=== PATIENT | male | born 1965 | race Caucasian/White ===

== ENCOUNTER 2018-11-16 12:46 | Outpatient (CLI) | payer OTHER | END 2018-11-16 23:59 | disposition home or self-care (01) | LOC: LAB.WCP 12:46 | PROVIDERS: ATTEND Physician Assistant Medical | DX: E29.1 Testicular hypofunction (principal) | CPT/HCPCS: 36415; 81599; 84402; 84403 ==

== ENCOUNTER 2019-03-09 10:40 | Outpatient (CLI) | payer OTHER | END 2019-03-09 10:41 | disposition home or self-care (01) | LOC: LAB.WCP 10:40 | PROVIDERS: ATTEND Physician Assistant Medical | DX: E29.1 Testicular hypofunction (principal) | CPT/HCPCS: 81599; 84403 ==

== ENCOUNTER 2019-03-29 09:44 | Outpatient (CLI) | payer OTHER | END 2019-03-29 09:45 | disposition home or self-care (01) | LOC: LAB.WCP 09:44 | PROVIDERS: ATTEND Physician Assistant Medical | DX: E29.1 Testicular hypofunction (principal) | CPT/HCPCS: 81599; 84402; 84403 ==

== ENCOUNTER 2019-09-24 10:15 | Outpatient (CLI) | payer OTHER | END 2019-09-24 23:59 | disposition home or self-care (01) | LOC: LAB.WCP 10:15 | PROVIDERS: ATTEND Physician Assistant Medical | DX: E29.1 Testicular hypofunction (principal) | CPT/HCPCS: 36415; 81599 ==

== ENCOUNTER 2019-12-09 08:00 | Outpatient (CLI) | payer OTHER ==
[2019-12-09 12:00] LABS: BASOPHILS % (AUTO) 0.6 %; EOSINOPHILS # (AUTO) 0.1 10^3/uL (0.0-0.7); EOSINOPHILS % (AUTO) 1.9 %; HGB - HEMOGLOBIN 19.1 g/dL (14.0-18.0); LYMPHOCYTES # (AUTO) 1.3 10^3/uL (1.5-3.5); LYMPHOCYTES % (AUTO) 24.4 %; MEAN CORPUSCULAR HEMOGLOBIN 31.1 pg (27.0-31.0); MEAN CORPUSCULAR HGB CONC 32.9 g/dL (32.0-36.0); MEAN CORPUSCULAR VOLUME 94.3 fL (80.0-94.0); MEAN PLATELET VOLUME 12.4 fL (7.4-11.4); MONOCYTES # (AUTO) 0.4 10^3/uL (0.0-1.0); MONOCYTES % (AUTO) 7.4 %; NEUTROPHILS # (AUTO) 3.4 10^3/uL (1.5-6.6); NEUTROPHILS % (AUTO) 65.3 %; PLT - PLATELET COUNT 166 10^3/uL (130-450); RED BLOOD COUNT 6.15 10^6/uL (4.70-6.10); RED CELL DISTRIBUTION WIDTH 13.6 % (12.0-15.0); WHITE BLOOD COUNT 5.2 x10^3/uL (4.8-10.8)
[2019-12-09 12:41] LABS: ALBUMIN 4.2 g/dL (3.2-5.5); ALBUMIN/GLOBULIN RATIO 1.3 (1.0-2.2); ALKALINE PHOSPHATASE 72 IU/L (42-121); ALT ALANINE AMINOTRANSFERASE 55 IU/L (10-60); AST ASPARTATE AMINOTRANSFERASE 35 IU/L (10-42); BILIRUBIN,TOTAL 0.4 mg/dL (0.2-1.0); BUN - BLOOD UREA NITROGEN 19 mg/dL (6-20); CALCIUM 8.7 mg/dL (8.5-10.3); CARBON DIOXIDE - CO2 30 mmol/L (21-32); CHLORIDE 104 mmol/L (101-111); CHOL/HDL RATIO 5.9 (<5.0); CHOLESTEROL 219 mg/dL; CREATININE 1.3 mg/dL (0.6-1.2); GFR - MDRD 58 (>89); GLUCOSE 98 mg/dL (70-100); HDL CHOLESTEROL 37 mg/dL; LDL CHOLESTEROL,CALCULATED 162 mg/dL; LDL/HDL RATIO 4.4 (<3.6); SODIUM 137 mmol/L (135-145); TOTAL PROTEIN 7.4 g/dL (6.7-8.2); VLDL CHOLESTEROL 20 mg/dL
== END 2019-12-09 23:59 | disposition home or self-care (01) ==
LOC: LAB.WCP 08:00
PROVIDERS: ATTEND Physician Assistant Medical
DX: E29.1 Testicular hypofunction (principal); I10 Essential (primary) hypertension; Z12.5 Encounter for screening for malignant neoplasm of prostate
CPT/HCPCS: 36415; 80053; 80061; 83721; 84153; 84443; 85025

== ENCOUNTER 2020-02-03 11:46 | Outpatient (CLI) | payer OTHER ==
--- NOTE | 2020-02-03 20:05 | XRAY Report ---
Reason: LEFT OLECRANON BURSITIS Procedure Date: 02/03/2020 Accession Number: [id number] / [id number] Procedure: WCP - Elbow 2 View LT CPT Code: Final Report FULL RESULT: EXAM: LEFT ELBOW RADIOGRAPHY EXAM DATE: 02/03/2020 11:46 AM. CLINICAL HISTORY: LEFT OLECRANON BURSITIS. Swelling for 10 days since being hit with a tree branch. COMPARISON: None. TECHNIQUE: 2 views. FINDINGS: Bones: Normal. No fractures or bone lesions. Joints: Moderate narrowing at the radiocapitellar joint. Mild radial head and distal humeral osteophyte formation. No subluxation. No evidence of joint effusion. Soft Tissues: Mild soft tissue swelling over the olecranon. IMPRESSION: 1. Mild soft tissue swelling over the olecranon. 2. No fracture or malalignment is identified. 3. 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 [facility]
== END 2020-02-03 23:59 | disposition home or self-care (01) ==
LOC: DI.WCP 11:46
PROVIDERS: ATTEND Family Medicine
DX: M19.022 Primary osteoarthritis, left elbow (principal); R22.32 Localized swelling, mass and lump, left upper limb

== ENCOUNTER 2020-07-03 08:00 | Outpatient (CLI) | payer OTHER | END 2020-07-03 23:59 | disposition home or self-care (01) | LOC: LAB.WCP 08:00 | PROVIDERS: ATTEND Physician Assistant Medical | DX: E29.1 Testicular hypofunction (principal) | CPT/HCPCS: 36415; 81599; 84402; 84403 ==

== ENCOUNTER 2020-12-11 07:00 | Outpatient (CLI) | payer OTHER ==
[2020-12-11 18:25] LABS: BASOPHILS % (AUTO) 0.6 %; EOSINOPHILS # (AUTO) 0.1 10^3/uL (0.0-0.7); EOSINOPHILS % (AUTO) 1.5 %; HGB - HEMOGLOBIN 19.2 g/dL (14.0-18.0); LYMPHOCYTES # (AUTO) 1.4 10^3/uL (1.5-3.5); LYMPHOCYTES % (AUTO) 27.3 %; MEAN CORPUSCULAR VOLUME 93.9 fL (80.0-94.0); MEAN PLATELET VOLUME 12.4 fL (7.4-11.4); MONOCYTES # (AUTO) 0.3 10^3/uL (0.0-1.0); MONOCYTES % (AUTO) 6.3 %; NEUTROPHILS # (AUTO) 3.4 10^3/uL (1.5-6.6); NEUTROPHILS % (AUTO) 64.1 %; PLT - PLATELET COUNT 175 10^3/uL (130-450); RED BLOOD COUNT 6.39 10^6/uL (4.70-6.10); RED CELL DISTRIBUTION WIDTH 14.4 % (12.0-15.0); WHITE BLOOD COUNT 5.3 x10^3/uL (4.8-10.8)
[2020-12-11 18:50] LABS: ALBUMIN 4.6 g/dL (3.2-5.5); ALBUMIN/GLOBULIN RATIO 1.5 (1.0-2.2); ALKALINE PHOSPHATASE 72 IU/L (42-121); ALT ALANINE AMINOTRANSFERASE 46 IU/L (10-60); AST ASPARTATE AMINOTRANSFERASE 31 IU/L (10-42); BILIRUBIN,TOTAL 0.7 mg/dL (0.2-1.0); BUN - BLOOD UREA NITROGEN 19 mg/dL (6-20); CALCIUM 8.9 mg/dL (8.5-10.3); CARBON DIOXIDE - CO2 28 mmol/L (21-32); CHLORIDE 102 mmol/L (101-111); CHOL/HDL RATIO 5.9 (<5.0); CHOLESTEROL 241 mg/dL; CREATININE 1.1 mg/dL (0.6-1.2); GFR - MDRD 69 (>89); GLUCOSE 94 mg/dL (70-100); HDL CHOLESTEROL 41 mg/dL; LDL CHOLESTEROL,CALCULATED 177 mg/dL; LDL/HDL RATIO 4.3 (<3.6); POTASSIUM 4.5 mmol/L (3.5-5.0); SODIUM 136 mmol/L (135-145); TOTAL PROTEIN 7.7 g/dL (6.7-8.2); TRIGLYCERIDES 116 mg/dL; VLDL CHOLESTEROL 23 mg/dL
[2020-12-11 18:55] LABS: THYROID STIMULATING HORMONE 2.47 uIU/mL (0.34-5.60)
== END 2020-12-11 23:59 | disposition home or self-care (01) ==
LOC: LAB.WCP 07:00
PROVIDERS: ATTEND Physician Assistant Medical
DX: Z00.00 Encounter for general adult medical examination without abnormal findings (principal); E78.5 Hyperlipidemia, unspecified; Z12.5 Encounter for screening for malignant neoplasm of prostate; E29.1 Testicular hypofunction
CPT/HCPCS: 36415; 80053; 80061; 81599; 82040; 83721; 84153; 84270; 84402; 84403; 84443; 85025

== ENCOUNTER 2021-01-09 08:43 | Outpatient (CLI) | payer OTHER ==
--- NOTE | 2021-01-09 09:36 | CT Report ---
PROCEDURE: Low Dose Lung Cancer Screen INDICATIONS: HX OF SMOKING TECHNIQUE: Noncontrast low-dose 5 mm thick sections acquired from the pulmonary apices to the posterior costophr enic angles. 7 mm thick coronal and sagittal MIP reformats were then acquired. For radiation dose r eduction, the following was used: automated exposure control, adjustment of mA and/or kV according t o patient size. COMPARISON: None. FINDINGS: Image quality: Excellent. Lungs and pleura: No pulmonary nodules. No focal pulmonary infiltrates. No pleural fluid. Mediastinum: Heart size is normal. No pericardial effusion. No mediastinal adenopathy by size crit eria. Thoracic aorta and central pulmonary arteries are normal in size. Esophagus is normal in darrell andrea. No hiatal hernia. Bones and chest wall: No suspicious bony lesions. No vertebral body compression fractures. No axil teddy or supraclavicular adenopathy by size criteria. Thyroid is not well visualized on this low-dose technique. Abdomen: Visualized upper abdomen solid organs and bowel loops appear normal in the absence of contr ast. IMPRESSION: 1. LungRads category 1: Negative. No nodules and/or definitely benign nodules. 2. Annual low-dose noncontrast CT of the chest is recommended for lung cancer screening. Reviewed by: Anson Tai MD on 01/09/2021 9:34 AM PDT Approved by: Anson Tai MD on 01/09/2021 9:34 AM PDT Station ID: [id number]
== END 2021-01-09 08:44 | disposition home or self-care (01) ==
LOC: DI 08:43
PROVIDERS: ATTEND Physician Assistant Medical
DX: Z12.2 Encounter for screening for malignant neoplasm of respiratory organs (principal); F17.210 Nicotine dependence, cigarettes, uncomplicated

== ENCOUNTER 2021-03-01 08:00 | Outpatient (CLI) | payer OTHER ==
[2021-03-01 12:34] LABS: CHOLESTEROL 252 mg/dL; HDL CHOLESTEROL 36 mg/dL; LDL CHOLESTEROL,CALCULATED 200 mg/dL; LDL/HDL RATIO 5.6 (<3.6); TRIGLYCERIDES 78 mg/dL; VLDL CHOLESTEROL 16 mg/dL
== END 2021-03-01 23:59 | disposition home or self-care (01) ==
LOC: LAB.WCP 08:00
PROVIDERS: ATTEND Physician Assistant Medical
DX: E78.5 Hyperlipidemia, unspecified (principal); E29.1 Testicular hypofunction
CPT/HCPCS: 36415; 80061; 83721; 84403

== ENCOUNTER 2021-04-26 10:39 | Outpatient (CLI) | payer OTHER ==
[2021-04-26 11:30] VITALS: BP 150/90
--- NOTE | 2021-04-26 11:30 | SLEEP CARE CONSULTATION ---
Information from patient questionnaire entered by Tina Sanchez. I have reviewed and concur with the information entered by Tina Sanchez. This document represents the service I personally performed and the decisions made by me, Martha Bryan ARNP. History of Present Illness Service Date and Time: 04/26/2021 1039 Reason for Visit: New patient Chief Complaint: reports: Unrefreshed sleep, Snoring, Observed pauses in breathing, Frequent awakenings at night Date of Onset: 6-7 years Usual bedtime: 10:30pm Time it takes to fall asleep: 10 minutes Snores at night: Yes Observed to quit breathing while asleep: No Sleeps alone due to snoring: Yes Number of times waking at night: 0-2 Reasons for waking at night: reports: Other (unknown reasons). denies: Choking, Snoring, Gasping for air Toss, Turn, or Twitch while sleeping: Yes Recalls having dreams: Yes (sometimes) Usually gets out of bed at: 4-5 am Feels refreshed in the morning: Yes (sometimes) Morning headache: No Sleepy or fatigued during the day: Yes (sometimes) Ever fallen asleep while driving: No (sometimes drowsy driving or no accidents) Takes day naps: No Prior sleep studies: No Additional HPI information: I had the pleasure of seeing DANIELLE MARSH today regarding the possibility of him having a sleep disorder. His current complaints are unrefreshed sleep, frequent night awakenings and snoring. He was seeing PCP for regular checkup. They were talking and it was noted that he had loud snoring that caused his sleep in another room. His has told him that he will have pauses in his snoring pattern but they are not long. He can sleep all through the night and not feel rested at times. Other times he will awaken early and feels rested, ready for the day. He can be tired during the day but he keeps going and/or has a caffeine drink to help him out. He does not take naps. 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 Patient is and lives in [place]. Have you smoked in the past 12 months: No Quit date: 2014 Alcohol use: Yes Alcohol amount and frequency: very little, 2-3 times a year Caffeine use: Yes Caffeine amount and frequency: 2-3 cups daily Family History Family history of sleep disordered breathing: Yes Family Hx Sleep Apnea: Father: Sleep apnea - Treated Allergies and Home Medications Drug allergies reviewed: Yes (Penicillin) Home medication list reviewed: Yes Allergy and home medication list: Lisinopril Lipitor Testosterone Review of Systems Weight loss over past 5 years: 15 Cardiovascular: reports: high blood pressure Gastrointestinal: denies: heartburn Neurological: denies: headaches Psychiatric: denies: anxiety, depression Ear/Nose/Throat: reports: dry mouth/throat (in the morning), wisdom teeth removed (has 2 left). denies: tonsillectomy Endocrine: reports: other (testosterone therapy). denies: thyroid disease Musculoskeletal: reports: joint pain, back pain Physical Exam Blood Pressure: 150/90 Cuff size: long Heart Rate: 64 O2 Saturation: 97 Height: 5 ft 7 in Weight: 219 lb Body Mass Index: 34.2 BMI Classification: Obese Neck circumference: 17.25 (inches) Nostrils: patent to airflow Mouth and throat: narrow oropharynx Soft palate: long Hard palate: normal Uvula: long Uvula visualization: 100% Mallampati Class I Tongue: enlarged in size with teeth guerin on lateral edges Tonsils: 2+ Neck: normal w/o lymphadenopathy or thyromegaly Heart: regular rate and rhythm Lungs: clear bilaterally Impression and Plan 1. Suspected Obstructive Sleep Apnea-Hypopnea Syndrome, as suggested by a history of loud and irregular snoring, observed cessation of breath while asleep, frequent awakening during the night, and unrefreshed sleep. Narrow oropharynx and obesity are common predisposing factors for obstructive sleep apnea-hypopnea syndrome. I recommend proceeding to polysomnography to confirm the diagnosis and to assess severity. If the patient has significant sleep disordered breathing, a manual CPAP titration study will also be performed to find the optimal treatment pressure. I informed the patient of what the sleep studies involve and after some discussion, obtained agreement to proceed. The pathophysiology of obstructive sleep apnea-hypopnea syndrome was discussed with the patient and health risks of cardiovascular and cerebrovascular disease if not treated. AASM brochure for obstructive sleep apnea-hypopnea syndrome given and reviewed. Risks of drowsy driving discussed in detail and patient advised to avoid long distance driving and to conductor pullman at the first sign of drowsiness. Patient agreed to plan. * Schedule polysomnography +- manual CPAP titration study and return in 1-2 weeks after the study to discuss result and initiate therapy. * Avoid long distance driving or driving when feeling sleepy. * Avoid alcohol, sedative and muscle relaxant around bedtime. * Attempt to lose weight. * Review instructions provided by trained office staff on how to prepare for the sleep study. * Return for follow-up after sleep study completed. Counseling Topics: Weight loss health impact Visit Type: In Office Time Spent with Patient (minutes): 31 Provider Statement: I spent 100% of the Face to Face Visit with the patient with greater than 50% spent counseling the patient and coordination of care.
== END 2021-04-26 10:40 | disposition home or self-care (01) ==
LOC: SC 10:39
PROVIDERS: ATTEND Nurse Practitioner Family
DX: R06.81 Apnea, not elsewhere classified (principal); G47.8 Other sleep disorders; R06.83 Snoring; E66.9 Obesity, unspecified; Z68.34 Body mass index [BMI] 34.0-34.9, adult
CPT/HCPCS: 99203; 99212

== ENCOUNTER 2021-10-09 10:41 | Outpatient (CLI) | payer OTHER ==
--- NOTE | 2021-10-09 18:31 | MRI Report ---
PROCEDURE: Lumbar Spine W/O INDICATIONS: LUMBAR RADICULOPATHY TECHNIQUE: Noncontrast sagittal T1 spin echo and T2 fast echo, sagittal STIR, axial T1 and T2 fast spin echo thr ough the lumbar spine. In cases with scoliosis, additional coronal T2 fast spin echo may be performe d. COMPARISON: 06/17/2014 FINDINGS: Image quality: Excellent. Alignment and Curvature: Straightening of usual lumbar lordosis. Otherwise normal alignment. Vertebra l body heights maintained. Bone Marrow: No suspicious focal marrow signal abnormality or bone marrow edema. Scattered T1/T2 hype rintense hemangiomas. Nonedematous Modic type II and III degenerative endplate signal changes present at L3-L4. Spinal Cord: Conus medullaris terminates at the normal level. Visualized cord demonstrates normal s ignal and size. Regional Soft Tissues: Prevertebral and paraspinous soft tissues are within normal limits. T12-L1: No spinal foraminal stenosis. L1-L2: Mild spinal canal stenosis due to posterior disc bulging and broad-based protrusion. Small annular fissure in the right paracentral and subarticular zone. Disc material displaces the descendin g L2 nerve roots in both subarticular zones. No neural foraminal stenosis. L2-L3: Disc bulge flattens the ventral thecal sac. No mass effect upon the traversing L3 nerve amirah ts. Foraminal components of the disc bulge and facet hypertrophy combine to produce mild foraminal st enosis. L3-L4: Mild spinal canal stenosis due to posterior disc bulge and broad-based protrusion with mild displacement of the descending L4 nerve roots in both subarticular zones. Foraminal components of the disc bulge and facet hypertrophy combine to produce moderate left and mild right neural foraminal st enosis per L4-L5: Diffuse disc bulge and a superimposed broad-based posterior disc protrusion flatten and inde nt the ventral thecal sac with mild displacement of the descending L5 nerve roots in both subarticula r zones. Foraminal components of the disc bulge and facet hypertrophy combine to produce severe left and mild right neural foraminal stenosis. Flattening of the left L4 nerve root within the foramen. L5-S1: Diffuse disc bulge with mild displacement of the S1 nerve roots. Moderate bilateral neural f oraminal stenosis with abutment but no obvious flattening of the exiting L5 nerve roots. IMPRESSION: Multilevel multifactorial degenerative changes, most pronounced at L4-L5 where there is severe neural foraminal narrowing on the left. Correlate for any corresponding left L4 radicular symp toms. Reviewed by: Shaun Prasad MD on 10/09/2021 5:29 PM [facility] Approved by: Shaun Prasad MD on 10/09/2021 5:29 PM [facility] Station ID: [id number]
== END 2021-10-09 10:42 | disposition home or self-care (01) ==
LOC: DI 10:41
PROVIDERS: ATTEND Physician Assistant Medical
DX: M51.16 Intervertebral disc disorders with radiculopathy, lumbar region (principal); M47.26 Other spondylosis with radiculopathy, lumbar region; M48.061 Spinal stenosis, lumbar region without neurogenic claudication; M48.07 Spinal stenosis, lumbosacral region